=== PATIENT | female | born 1970 | race Hispanic/Latino ===

== ENCOUNTER → 2024-10-23 | Day surgery (SDC) | payer OTHER ==
[~2024-10-23] MED LIST: ACETAMINOPHEN 1000 MG/100 ML 100 ML IV ONE; ALLERGY RELIEF10 M4 PO; DEXAMETHASONE SOD PHOS INJ 4 MG/ML SDV ONE; DIPHENHYDRAMINE HCL INJ 50 MG/ML VIAL ONE; EPHEDRINE SULFATE INJ 50 MG/ML VIAL ONE; FAMOTIDINE 20 MG/2 ML VIAL IV ONE; FENTANYL CITRATE/PF 100MCG/2 ML INJ ONE; GLYCOPYRROLATE INJ 0.2 MG/ML VIAL ONE; K2 PLUS D3 TAB1 EACH PO; LIDOCAINE HCL 2% LOCAL INJ 5 ML SDV VIAL INJ ONE; MAGNESIUM GLYC100 MG PO; MIDAZOLAM HCL 2 MG/2 ML VIAL ONE; OZEMPIC1 MG/0.71 INJ; PROPOFOL IV EMULSION 10 MG/ML 20 ML VIAL ONE; VITAMIN B121000 MCG PO; VITAMIN D3 PO
[2024-10-23] MEDS: LACTATED RINGER'S 1,000 ML ONE (08:56)
[2024-10-23 12:05] VITALS: TEMP 98.8
[2024-10-23] MEDS: ACETAMINOPHEN/CODEINE 300MG - 30MG TAB ONE (12:48)
[2024-10-23 13:30] VITALS: BP 128/77; PULSE 87; RESP 18; O2SAT 99
== END | disposition home or self-care (01) ==
LOC: OR 08:15
PROVIDERS: ATTEND Specialist
DX: S83.241A Other tear of medial meniscus, current injury, right knee, initial encounter (principal); M22.41 Chondromalacia patellae, right knee; M65.961 Unspecified synovitis and tenosynovitis, right lower leg; M23.41 Loose body in knee, right knee; M25.761 Osteophyte, right knee; X58.XXXA Exposure to other specified factors, initial encounter; Y93.39 Activity, other involving climbing, rappelling and jumping off; Z88.0 Allergy status to penicillin; Z79.85 Long-term (current) use of injectable non-insulin antidiabetic drugs
CPT/HCPCS: 29877; 93005; J0131; J0690; J1100; J1200; J2003; J2250; J2704; J3010; J7121

== ENCOUNTER → 2024-12-08 | Outpatient (RCR) | payer OTHER ==
[~2024-12-08] MED LIST changes: -ACETAMINOPHEN 1000 MG/100 ML 100 ML IV ONE; -DEXAMETHASONE SOD PHOS INJ 4 MG/ML SDV ONE; -DIPHENHYDRAMINE HCL INJ 50 MG/ML VIAL ONE; -EPHEDRINE SULFATE INJ 50 MG/ML VIAL ONE; -FAMOTIDINE 20 MG/2 ML VIAL IV ONE; -FENTANYL CITRATE/PF 100MCG/2 ML INJ ONE; -GLYCOPYRROLATE INJ 0.2 MG/ML VIAL ONE; -LIDOCAINE HCL 2% LOCAL INJ 5 ML SDV VIAL INJ ONE; -MIDAZOLAM HCL 2 MG/2 ML VIAL ONE; -PROPOFOL IV EMULSION 10 MG/ML 20 ML VIAL ONE
== END ==
LOC: PT 11-17 08:07
PROVIDERS: ATTEND Physician Assistant
DX: Z09 Encounter for follow-up examination after completed treatment for conditions other than malignant neoplasm (principal); M17.11 Unilateral primary osteoarthritis, right knee

== ENCOUNTER 2024-12-12 07:11 | Outpatient (RCR) | payer OTHER | END 2025-01-05 | LOC: PT 07:11 | PROVIDERS: ATTEND Physician Assistant | DX: Z47.89 Encounter for other orthopedic aftercare (principal); M17.11 Unilateral primary osteoarthritis, right knee; M25.561 Pain in right knee; M25.661 Stiffness of right knee, not elsewhere classified ==

== ENCOUNTER → 2025-01-11 | Outpatient (REF) | payer OTHER | LOC: MAMMO 09:07 | PROVIDERS: ATTEND Internal Medicine Endocrinology, Diabetes & Metabolism | DX: Z12.31 Encounter for screening mammogram for malignant neoplasm of breast (principal); M85.88 Other specified disorders of bone density and structure, other site | CPT/HCPCS: 77067; 77080 ==

== ENCOUNTER → 2025-01-25 | Outpatient (REF) | payer OTHER | LOC: MAMMO 10:59 | PROVIDERS: ATTEND Internal Medicine Endocrinology, Diabetes & Metabolism | DX: R92.30 Dense breasts, unspecified (principal) ==